=== PATIENT | male | born 1950 | race Caucasian/White ===

== ENCOUNTER 2018-07-16 04:37 | Emergency (ER) | payer MEDICARE ==
[~2018-07-16] VITALS: Ht 162.6 cm; Wt 67.0 kg
[2018-07-16 08:49] VITALS: BP 152/97
== END 2018-07-16 08:51 | disposition home or self-care (01) ==
LOC: ER 04:37
DX: M54.10 Radiculopathy, site unspecified (principal); I10 Essential (primary) hypertension
CPT/HCPCS: 72100; 73502; 99284